=== PATIENT | female | born 1945 | race African-American/Black ===

== ENCOUNTER 2025-07-12 06:41 | Emergency (ER) | payer MEDICARE, OTHER ==
[~2025-07-12] VITALS: Ht 152.4 cm; Wt 82.0 kg
[2025-07-12 06:42] VITALS: O2SAT 99
[2025-07-12] MEDS: SODIUM CHLORIDE 0.9% 1,000 ML IV ONE (09:03)
[2025-07-12 09:17] LABS: BASOPHILS % 0.5 % (0.0-2.0); EOSINOPHILS % 0.4 % (0.0-5.0); HEMATOCRIT. 45.2 % (36.0-48.0); HEMOGLOBIN. 14.5 g/dL (12.0-16.0); LYMPHOCYTES % 12.0 % (20.0-50.0); MEAN PLATELET VOLUME 10.4 fl (7.4-10.4); MONOCYTES % 6.2 % (2.0-8.0); NEUTROPHILS % 80.9 % (40.0-76.0); PLATELET 288 x1000/uL (130-400); RED BLOOD CELL COUNT 5.06 mill/uL (4.2-5.4); RED CELL DISTRIBUTION WIDTH 13.8 % (11.6-14.6)
[2025-07-12 09:24] LABS: CREATININE 1.1 mg/dL (0.6-1.0); UREA NITROGEN BLOOD 13.0 mg/dL (9-23)
[2025-07-12 09:25] LABS: TROPONIN I HIGH SENSITIVITY 8 ng/L (3.0-34)
[2025-07-12 10:48] LABS: TROPONIN I HIGH SENSITIVITY 7 ng/L (3.0-34)
[2025-07-12] MEDS: CEFTRIAXONE 1GM/50ML 50 ML IV ONE (11:07)
[2025-07-12] MEDS: SODIUM CHLORIDE 0.9% (SEPSIS BOLUS) IV ONE (11:25)
[2025-07-12] MEDS: ONDANSETRON HCL 4MG/2ML INJ IV ONE (11:35)
[2025-07-12 11:42] LABS: INFLUENZA TYPE A Presumptive Negative (Pres. Neg.)
[2025-07-12 11:43] LABS: INFLUENZA TYPE B Presumptive Negative (Pres. Neg.)
[2025-07-12 12:40] LABS: CLARITY URINE CLEAR (CLEAR); COLOR URINE YELLOW (YELLOW); GLUCOSE URINE 3+ (NEGATIVE); KETONES URINE 3+ (NEGATIVE); LEUKOCYTE ESTERASE URINE NEGATIVE (NEGATIVE); NITRITE URINE NEGATIVE (NEGATIVE); OCCULT BLOOD URINE TRACE (NEGATIVE); PH URINE 5.5 (4.5-8.0); PROTEIN URINE TRACE (NEGATIVE); SPECIFIC GRAVITY URINE 1.033 (1.005-1.030); UROBILINOGEN URINE 1.0 E.U./dL (0.2-1.0)
[2025-07-12 12:48] LABS: BACTERIA URINE TRACE; COARSE GRANULAR CASTS URINE 0-5 /lpf; HYALINE CASTS URINE 0-5 /lpf; SQUAMOUS EPITHELIAL CELL URINE 1+ /lpf (RARE/1+); WBC URINE 0-2 /hpf (0-2); YEAST URINE NONE SEEN
[2025-07-12 15:51] LABS: PROTEIN TOTAL 7.4 g/dL (6.0-8.3)
[2025-07-12 15:52] LABS: ASPARTATE AMINOTRANSFERASE 26 IU/L (<34); BILIRUBIN DIRECT 0.3 mg/dL (<=3.0); BILIRUBIN TOTAL 0.8 mg/dL (0.1-1.0)
[2025-07-12 16:42] VITALS: BP 175/85; PULSE 90; RESP 14; TEMP 37; O2SAT 97
== END 2025-07-12 16:15 | disposition short-term general hospital (02) ==
LOC: ER 06:41 → CMPBEDREQ 07-13 20:04
DX: K52.9 Noninfective gastroenteritis and colitis, unspecified (principal); E86.0 Dehydration; I10 Essential (primary) hypertension; E11.9 Type 2 diabetes mellitus without complications; Z20.822 Contact with and (suspected) exposure to COVID-19
CPT/HCPCS: 99291; 96365; 71045; 96361; 96375; 87426; 80076; 80048; 81003; 83880; 83605; 85025; 87040; 87086; 84484; 87804 ×2; 36415; J0696; J2405; J7030